=== PATIENT | male | born 1945 | race Hispanic/Latino ===

== ENCOUNTER 2019-12-01 08:20 | Day surgery (SDC) | payer MEDICARE ==
[~2019-12-01] VITALS: Ht 172.7 cm; Wt 92.5 kg
[~2019-12-01 08:20] MED LIST: SODIUM CHLORIDE 0.9% 1000ML 0 ML IV ONE
[2019-12-01] MEDS ORDERED: SODIUM CHLORIDE 0.9% 1000ML 0 ML IV ONE (08:41)
[2019-12-01 08:49] VITALS: BP 121/80
[2019-12-01] MEDS ORDERED: FAMO40TA7 PO (09:13)
[2019-12-01] MEDS ORDERED: EMPA25TA PO (09:13)
[2019-12-01] MEDS ORDERED: CHOL200059 PO (09:13)
[2019-12-01] MEDS ORDERED: MULT-1289 PO (09:13)
[2019-12-01] MEDS ORDERED: LOSA25TA41 PO (09:13)
[2019-12-01] MEDS ORDERED: CLOP75TA14 PO (09:13)
[2019-12-01] MEDS ORDERED: INSU100I35 SQ (09:13)
[2019-12-01] MEDS ORDERED: ATOR40TA71 PO (09:13)
[2019-12-01] MEDS ORDERED: VENL-63 PO (09:13)
[2019-12-01] MEDS ORDERED: GABA-529 PO (09:13)
[2019-12-01] MEDS ORDERED: ASPI-555 PO (09:13)
[2019-12-01] MEDS ORDERED: PROPOFOL 10 MG/ML 20ML VIAL IV ONE (10:29)
[2019-12-01] MEDS ORDERED: LIDOCAINE HCL 1% 20 ML VIAL ONE (10:29)
[2019-12-01 10:53] VITALS: BP 106/64
[2019-12-01 10:58] VITALS: BP 96/50
[2019-12-01 11:03] VITALS: BP 99/65
[2019-12-01 11:08] VITALS: BP 105/71
== END 2019-12-01 11:15 | disposition home or self-care (01) ==
LOC: ENDO 08:20
PROVIDERS: ATTEND Internal Medicine Gastroenterology
DX: K62.89 Other specified diseases of anus and rectum (principal); K63.5 Polyp of colon; K29.50 Unspecified chronic gastritis without bleeding; K57.30 Diverticulosis of large intestine without perforation or abscess without bleeding; R94.5 Abnormal results of liver function studies; R16.1 Splenomegaly, not elsewhere classified; K76.0 Fatty (change of) liver, not elsewhere classified; I25.10 Atherosclerotic heart disease of native coronary artery without angina pectoris; E11.9 Type 2 diabetes mellitus without complications; N40.0 Benign prostatic hyperplasia without lower urinary tract symptoms; I10 Essential (primary) hypertension; E78.5 Hyperlipidemia, unspecified; Z79.82 Long term (current) use of aspirin; Z79.01 Long term (current) use of anticoagulants; Z79.899 Other long term (current) drug therapy; M19.90 Unspecified osteoarthritis, unspecified site
CPT/HCPCS: 43239; 45380; 82948 ×2; 88305; A4215; A4221; A4222; A4223; A4606; A4620; A4663; J2704; J7030